=== PATIENT | female | born 1930 | race Caucasian/White ===

== ENCOUNTER → 2017-06-29 | Outpatient (CLI) | payer OTHER ==
[~2017-06-29] MED LIST: ACET-1256 PO; ASPI-320 PO; CALC500C3 PO; CLB200 PO; DORZ2SOL20 OPB; LISI5TAB3 PO; SNK PO; VITAMIN D PO; VTMB12 PO
--- NOTE | 2017-06-29 21:33 | DIAGNOSTIC IMAGING REPORT ---
BONE SCAN 3 PHASE LIMITED CLINICAL HISTORY: 87 years-old Female presenting with HX LEFT HIP REPLACEMENT, R/O LOOSENING. TECHNIQUE: Following the IV administration of 27.0 mCi of technetium 99m MDP, three-phase bone scan of the pelvis was performed. Anterior flow images as well as anterior and posterior blood pool phase images were acquired. Bone phase imaging of pelvis was performed at three hours in multiple obliquities. COMPARISON: Pelvic radiographs from 04/26/2015. FINDINGS: On initial flow imaging, symmetric radiotracer distribution within the vasculature, however, hyperemia noted surrounding the left hip joint best seen on posterior early arterial images. On subsequent blood pool phase imaging, photopenia at the left hip evidence of the left hip prosthesis. Minimal asymmetric hyperemia may be present on posterior view. On bone phase imaging, expected excretion of radiotracer in the urinary bladder. Apart from photopenia related to the left hip prosthesis, symmetric radiotracer distribution. IMPRESSION: Subtle hyperemia surrounding the left hip joint only on the early arterial images and blood pool may be expected chronic postsurgical findings. No hyperemia on delayed phase to raise concern for infection or loosening. Electronically signed by: Zhen Seo M.D. 06/29/2017 9:32 PM Dictated Date/Time: 06/29/2017 9:18 PM
== END | disposition home or self-care (01) ==
LOC: C.NUCL 15:49
DX: T84.032A Mechanical loosening of internal right knee prosthetic joint, initial encounter (principal); Y79.8 Miscellaneous orthopedic devices associated with adverse incidents, not elsewhere classified; M25.562 Pain in left knee

== ENCOUNTER → 2017-07-01 | Outpatient (CLI) | payer OTHER ==
[~2017-07-01] MED LIST changes: +ATOR-22 PO; +CALC500C70 PO; +CYAN500T PO; +LISI-729 PO; +PRED20TA PO
--- NOTE | 2017-07-01 14:01 | DIAGNOSTIC IMAGING REPORT ---
[facility] CASTRO SHLDR,HIP,KNEE CLINICAL HISTORY: 87 years-old Female presenting with LEFT HIP ASPIRATION. COMPARISON: 04/26/2015. PROCEDURE: The risks, benefits, and alternatives to the procedure were discussed with the patient. Written informed consent was obtained. The patient was placed supine on the fluoroscopy table, and a left hip aspiration was performed under fluoroscopic guidance. The area was prepped and draped in the usual sterile fashion. The skin and soft tissues anesthetized with local 1% lidocaine. The left hip joint was accessed utilizing a 20-gauge needle. Attempt at aspiration was performed, which yielded no fluid return. Subsequently, 2 mL of sterile saline was injected into the joint and aspiration reattempted. Again, this yielded no fluid. The procedure was well tolerated without immediate complication. Fluoroscopy dosage (mGy): Not available. Fluoroscopy time: 0.3 minutes. Number of fluoroscopic spot images: 0. Fluoroscopic image(s) recorded: 1. IMPRESSION: Successful aspiration of the left hip under fluoroscopic guidance though no fluid was returned. No specimens collected for analysis. Electronically signed by: Zhen Seo M.D. 07/01/2017 2:00 PM Dictated Date/Time: 07/01/2017 1:57 PM
== END | disposition home or self-care (01) ==
LOC: C.RAD 12:53
DX: T84.038A Mechanical loosening of other internal prosthetic joint, initial encounter (principal); X58.XXXA Exposure to other specified factors, initial encounter

== ENCOUNTER → 2017-07-29 | Outpatient (CLI) | payer OTHER ==
[~2017-07-29] MED LIST changes: -ACET-1256 PO; +ACET-24 PO; +CEFT1INJ57 IV; -CLB200 PO; +CLC100 PO; -LISI-729 PO; -LISI5TAB3 PO; +LSN10 PO; -PRED20TA PO; -SNK PO; +ULT50X PO; -VITAMIN D PO; -VTMB12 PO
[2017-07-29 12:33] LABS: HEMATOCRIT 30.6 % (37-47); HEMOGLOBIN 9.9 g/dL (12.0-16.0); MEAN CELL VOLUME 95.6 fL (80-100); MEAN CORPUSCULAR HEMOGLOBIN 30.9 pg (25-34); MEAN CORPUSCULAR HGB CONC 32.4 g/dl (32-36); MEAN PLATELET VOLUME 9.3 fL (7.4-10.4); PLATELET COUNT 452 K/uL (130-400); RED CELL DISTRIBUTION WIDTH CV 13.6 % (11.5-14.5); RED CELL DISTRIBUTION WIDTH SD 48.2 fL (36.4-46.3); WHITE BLOOD COUNT 9.71 K/uL (4.8-10.8)
[2017-07-29 13:25] LABS: ALBUMIN 2.8 gm/dl (3.4-5.0); ALKALINE PHOSPHATASE 59 U/L (45-117); ALT/SGPT 11 U/L (12-78); AST/SGOT 15 U/L (15-37); BLOOD UREA NITROGEN 14 mg/dl (7-18); CALCIUM 8.5 mg/dl (8.5-10.1); CARBON DIOXIDE 26 mmol/L (21-32); CREATININE 0.59 mg/dl (0.60-1.20); GLUCOSE 71 mg/dl (70-99); POTASSIUM 3.8 mmol/L (3.5-5.1); SODIUM 134 mmol/L (136-145); TOTAL PROTEIN 7.1 gm/dl (6.4-8.2)
--- NOTE | 2017-10-09 06:49 | CODING QUERY NO DIAGNOSIS ---
Valid Physician Order Needed A valid physician order must be submitted in order to properly bill for the service(s) provided, including date of service(s), valid diagnosis, and physician signature. If these tests are done on a recurring basis the original physician order must be submitted in order to code and bill for the service(s) provided. Please fax us the original, signed physician order so that we may expedite billing to [phone] DOS 07/29/2017 * CBC W/O DIFF * SED RATE AUTOMATED * CPK * CMP Thank you Moi [facility] Information Management
== END | disposition home or self-care (01) ==
LOC: C.LABSPEC 11:53
PROVIDERS: ATTEND Family Medicine
DX: Z01.89 Encounter for other specified special examinations (principal)

== ENCOUNTER → 2017-08-12 | Outpatient (CLI) | payer OTHER ==
[2017-08-12 11:52] LABS: BASO % 0.4 %; BASO ABS # 0.03 K/uL (0-0.2); EOS % 3.3 %; EOS ABS # 0.22 K/uL (0-0.5); HEMATOCRIT 31.1 % (37-47); HEMOGLOBIN 9.9 g/dL (12.0-16.0); IG# 0.02 K/uL (0.00-0.02); LYMPH % 30.9 %; LYMPH ABS # 2.08 K/uL (1.2-3.4); MEAN CELL VOLUME 96.6 fL (80-100); MEAN CORPUSCULAR HEMOGLOBIN 30.7 pg (25-34); MEAN CORPUSCULAR HGB CONC 31.8 g/dl (32-36); MEAN PLATELET VOLUME 10.2 fL (7.4-10.4); MONO % 12.6 %; MONO ABS # 0.85 K/uL (0.11-0.59); NEUT % 52.5 %; NEUT ABS # 3.54 K/uL (1.4-6.5); PLATELET COUNT 387 K/uL (130-400); RED CELL DISTRIBUTION WIDTH CV 13.2 % (11.5-14.5); WHITE BLOOD COUNT 6.74 K/uL (4.8-10.8)
[2017-08-12 12:08] LABS: ALBUMIN 2.8 gm/dl (3.4-5.0); ALKALINE PHOSPHATASE 58 U/L (45-117); ALT/SGPT 10 U/L (12-78); AST/SGOT 17 U/L (15-37); BLOOD UREA NITROGEN 11 mg/dl (7-18); CALCIUM 8.5 mg/dl (8.5-10.1); CARBON DIOXIDE 26 mmol/L (21-32); CREATININE 0.49 mg/dl (0.60-1.20); GLUCOSE 77 mg/dl (70-99); SODIUM 137 mmol/L (136-145); TOTAL PROTEIN 6.7 gm/dl (6.4-8.2)
--- NOTE | 2017-08-14 12:25 | CODING QUERY NO DIAGNOSIS ---
1931 Valid Physician Order Needed A valid physician order must be submitted in order to properly bill for the service(s) provided, including date of service(s), valid diagnosis, and physician signature. If these tests are done on a recurring basis the original physican order must be submitted in order to code and bill for the service(s) provided. Please fax us the original, signed physician order so that we may expedite billing to [phone] DOS 08/12/17 CBC WITH DIFF CMP CREATINE PHOSPHOKINASE ESR Thank you COREY Renee, [facility] Health Information Management
== END | disposition home or self-care (01) ==
LOC: C.LABSPEC 11:35
PROVIDERS: ATTEND Internal Medicine Infectious Disease
DX: Z01.89 Encounter for other specified special examinations (principal)

== ENCOUNTER 2018-08-25 18:45 | Inpatient (IN) ==
[2018-08-25] MEDS ORDERED: ONDANSETRON INJ 2 MG/ML 2 ML VIAL IV STA ×2 (20:02→21:18)
[2018-08-25] MEDS ORDERED: HYDROmorphone INJ 0.5 MG/0.5 ML SYR IV PRN (20:02)
[2018-08-25] MEDS ORDERED: SODIUM CHLORIDE 0.9% 500 ML IV SCH (20:15)
[2018-08-25 20:28] LABS: Basophils # (auto) 0.01 K/uL (0-0.2); Basophils % (auto) 0.1 %; Eosinophils # (auto) 0.02 K/uL (0-0.5); Eosinophils % (auto) 0.2 %; Hematocrit (blood only) 33.1 % (37-47); Hemoglobin 11.3 g/dL (12.0-16.0); Immature Granulocytes # (auto) 0.02 K/uL (0.00-0.02); Immature Granulocytes % (auto) 0.2 %; Lymphocytes # (auto) 1.77 K/uL (1.2-3.4); Lymphocytes % (auto) 14.8 %; Mean Corpuscular Hgb Conc 34.1 g/dL (32-36); Mean Corpuscular Volume 95.9 fL (80-100); Mean Platelet Volume 9.6 fL (7.4-10.4); Monocytes # (auto) 1.08 K/uL (0.11-0.59); Neutrophils # (auto) 9.08 K/uL (1.4-6.5); Neutrophils % (auto) 75.7 %; Platelet Count 295 K/uL (130-400); RDW Standard Deviation 45.3 fL (36.4-46.3); Red Blood Count 3.45 M/uL (4.2-5.4); White Blood Count 11.98 K/uL (4.8-10.8)
[2018-08-25 20:31] LABS: Appearance Urine Clear (Clear); Bacteria Urine Automated Negative (Negative); Bilirubin Urine Negative (Negative); Blood Urine Trace (Negative); Color Urine Yellow; Epithelial Cell Urine Auto >30 /lpf (0-5); Glucose Urine UA Negative (Negative); Ketones Urine Trace (Negative); Leukocyte Esterase Urine 1+ (Negative); Nitrite Urine Negative (Negative); Protein Urine Negative (Negative); Urobilinogen Urine Negative (Negative); pH Urine 7.5 (4.5-7.5)
[2018-08-25 20:49] LABS: Albumin Level 3.9 gm/dl (3.4-5.0); BUN Creatinine Ratio 19.7 (10-20); Calcium 8.7 mg/dl (8.5-10.1); Creatinine Clr Calc Pharmacy 56.5 ml/min; Est GFR (Non-African American) 80.2; Potassium 3.7 mmol/L (3.5-5.1)
[2018-08-25 20:52] LABS: Albumin Globulin Ratio 1.3 (0.9-2); Bilirubin,Total 0.4 mg/dl (0.2-1); Globulin 3.1 gm/dl (2.5-4.0)
[2018-08-25 21:03] LABS: RBC Urine Automated 0-4 /hpf (0-4)
[2018-08-25] MEDS ORDERED: fentaNYL citrate 100 MCG/2 ML VIAL IV STA (21:18)
--- NOTE | 2018-08-25 21:21 | CT Scan Report ---
CT abd pelvis wo con CLINICAL HISTORY: 88 years-old Female presenting with right lower quadrant pain, hernia, non-reducibl e. TECHNIQUE: Multidetector CT of the abdomen and pelvis was performed without the use of intravenous co ntrast. IV contrast: None. One or more dose lowering techniques were used consistent with the princip les of ALARA (as low as reasonably achievable), including automatic exposure control, mA or kV adjust ment to individual patient size, and/or use of iterative reconstruction. COMPARISON: None. CT DOSE (mGy.cm): The estimated cumulative dose is 461.48 mGy.cm. FINDINGS: Clinical Team Manager topogram: Orthopedic hardware. Lung bases: Normal heart size. Coronary artery and aortic valve calcification. No pericardial or pleu ral effusion. Minimal dependent changes likely atelectasis or scarring. Liver: Mildly nodular contour of the liver. Normal density. Parenchymal calcification noted in the in ferior right hepatic lobe. Biliary: No gross biliary ductal dilatation allowing for noncontrast technique. Normal gallbladder. Pancreas: Normal noncontrast appearance. Spleen: Normal noncontrast appearance. Adrenal glands: Normal noncontrast appearance. Kidneys and ureters: Normal noncontrast appearance. No nephrolithiasis. No hydronephrosis. Normal ure ters. Bladder: Distended bladder. Pelvic organs: Normal noncontrast appearance. Bowel: Diverticulosis of the distal descending and proximal sigmoid colon without wall thickening or pericolonic inflammatory change. The mid transverse colon is contained within the right inguinal umair ia. The appendix is normal. No bowel obstruction. Moderate sliding type hiatal hernia. Peritoneal cavity: Trace fluid noted in the right inguinal hernia. No free intraperitoneal fluid or g as. Lymph nodes: No gross lymphadenopathy allowing for noncontrast technique. Vasculature: Atherosclerosis of the normal caliber abdominal aorta. Abdominal wall: Normal. Musculoskeletal: Total left hip arthroplasty. Osteopenia is suspected. Degenerative changes of the sp ine. Anterolisthesis of L4 on L5 degenerative related. IMPRESSION: 1. Right inguinal hernia containing mid transverse colon with trace associated fluid. No resulting b owel obstruction. The lack of colonic wall thickening of the herniated segment argues against strangu lation/ischemia. 2. Colonic diverticulosis. No evidence of diverticulitis. 3. Moderate sliding type hiatal hernia. Electronically signed by: Zhen Seo M.D. 08/25/2018 9:20 PM
--- NOTE | 2018-08-25 21:55 | History & Physical Report ---
Date of Service August 25, 2018 Assessment & Plan (1) Incarcerated right inguinal hernia: Our plan is to proceed with her open right inguinal hernia repair possible bowel resection unlikely mesh risk and complications were explained to her including bleeding infection and she would like to proceed accordingly all questions were answered surgery is been called and we will appropriately proceed the patient was last meal was about 12:00 today Present on Admission?: Yes History of Present Illness Chief Complaint: Pain in the right inguinal area that started this morning she is known to have a lump in the area and was able always to push it back and but this time she was unable to she had one area of emesis prior to coming to the hospital nauseated at this time Primary Care Provider: Flores Gonzalez MD Allergies Allergy/AdvReac Type Severity Reaction Status Date / Time brimonidine AdvReac Mild ITCHING Verified 07/28/18 20:32 Aromatic Oils Allergy Unknown DRY Uncoded 07/28/18 20:32 THROAT,CHOKING,NUMB LIPS Home Medications Home Medications Medication Instructions Recorded Confirmed Type acetaminophen [Tylenol Extra 1,000 mg PO DIRECTED PRN 07/28/18 07/28/18 History Strength] atorvastatin 20 mg PO QAM 07/28/18 07/28/18 History calcium carbonate-vitamin D3 1 tab PO DAILY 07/28/18 07/28/18 History [Calcium 500 + D] cyanocobalamin (vitamin B-12) 500 mcg PO DAILY 07/28/18 07/28/18 History [Vitamin B-12] docusate sodium 100 mg PO DAILY 07/28/18 07/28/18 History lisinopril 10 mg PO QAM 07/28/18 07/28/18 History loteprednol etabonate [Lotemax] 1 drp OPR DAILY 07/28/18 07/28/18 History meclizine 12.5 mg PO TID PRN 07/28/18 07/28/18 History aspirin 81 mg PO DAILY #30 tab 07/30/18 Rx Past Med/Surg History Social History Preferred Language: Slovenian Communication Ability: Effective Beliefs That Will Affect Care: None Current Living Situation: Alone Feels Safe at Home: Yes Smoking Status: Never smoker Hx Alcohol Use: No Hx Substance Use: No Review of Systems Review of Systems: Patient has had overall good health he has had a history of DVTs strokelike symptoms hypertension GERD diverticulosis cataract surgery left hip surgery she also stated that she had colonoscopy approximately 5 years ago at was fine no polyps she denies any changes in bowel habits per her her bowels probably fairly regularly denies any changes in weight any GI symptoms other than what mentioned Physical Exam Physical Exam: Patient is alert coherent hard of hearing uses hearing aids but not available at this time she has significant other family members at her bedside the head is normocephalic the sclera Nonicteric no cervical lymphadenopathy lungs clear heart normal sinus rhythm the abdomen is softly distended tender in the right lower quadrant seems to have an inguinal hernia hard to reduce the size approximately a OrangeExtremities grossly normal Results & Data Vital Signs (Past 12 Hours) Vital Signs Temp Pulse Pulse Resp BP BP Pulse Ox 08/25/18 21:21 80 18 193/91 H 96 08/25/18 20:35 82 18 170/74 H 96 08/25/18 18:48 36.8 C 93 H 18 164/[address] scan was reviewed with findings of transverse colon in the hernia Code Status & VTE Plan VTE Prophylaxis Plan VTE Prophylaxis will be ordered: Yes
--- NOTE | 2018-08-25 22:18 | Anesthesiology Consultation ---
Date of Service August 25, 2018 TIA <1month ago Advanced Age HTN GERD Obesity Assessment & Plan Chart Review Chart Review: Acceptable Risk for Surgery and Patient NOT seen in Pre Admission Testing Consults Requested none ASA [id number] Proposed Anesthesia Anesthesia Type: General Risk / Benefits Reviewed With: PT / POA / Parent / Guardian, Accepts Plan and Informed Consent Obtained History Surgery Operation Date: 08/25/18 22:00 Proposed Procedures p Inguinal Hernia Repair(Right) - Andrea Gustafson MD Height/Weight Height: 5 ft Weight: 76.2 kg Allergies Allergy/AdvReac Type Severity Reaction Status Date / Time brimonidine AdvReac Mild ITCHING Verified 07/28/18 20:32 Aromatic Oils Allergy Unknown DRY Uncoded 07/28/18 20:32 THROAT,CHOKING,NUMB LIPS Medications Home Medications Medication Instructions Recorded Confirmed Last Taken acetaminophen [Tylenol Extra 1,000 mg PO DIRECTED PRN 07/28/18 07/28/18 Unknown Strength] atorvastatin 20 mg PO QAM 07/28/18 07/28/18 07/28/18 calcium carbonate-vitamin D3 1 tab PO DAILY 07/28/18 07/28/18 07/28/18 [Calcium 500 + D] cyanocobalamin (vitamin B-12) 500 mcg PO DAILY 07/28/18 07/28/18 07/28/18 [Vitamin B-12] docusate sodium 100 mg PO DAILY 07/28/18 07/28/18 Unknown lisinopril 10 mg PO QAM 07/28/18 07/28/18 07/28/18 loteprednol etabonate [Lotemax] 1 drp OPR DAILY 07/28/18 07/28/18 Unknown meclizine 12.5 mg PO TID PRN 07/28/18 07/28/18 Unknown aspirin 81 mg PO DAILY #30 tab 07/30/18 Unknown Active Medications Generic Name Dose Route Start Last Admin Trade Name Freq PRN Reason Stop Dose Admin Hydromorphone HCl 0.25 mg 08/25/18 20:02 08/25/18 20:36 Dilaudid IV 09/08/18 20:01 0.25 mg Q15M PRN Administration Pain NPO Date Last Intake of Fluids: 08/25/18 Time Last Intake of Fluids: 17:00 Date Last Intake of Solids: 08/25/18 Time Last Intake of Solids: 12:00 Past Medical History Medical History Incarcerated right inguinal hernia (Acute) Hypertension (Chronic) Glaucoma (Chronic) GERD (gastroesophageal reflux disease) (Chronic) Osteoarthritis (Chronic) Osteoporosis (Chronic) Diverticulosis (Chronic) History of rectal bleeding (Chronic) Cerebrovascular disease (Chronic) "?H/o TIA, no residual deficit MRI 11/2012- microvascular ischemic disease CT 08/2013- ?old lacunar infarct right basal ganglia, small vessel ischemic disease" Infection of prosthesis Neuropathy Exercise / Class Metabolic Activity II 4-5 Yardwork/Stairs/Walk up hill Past Family History Family History Other No significant family history Past Surgical History Surgical History S/P cataract surgery (Chronic) Status post glaucoma surgery (Chronic) History of left hip replacement (Chronic) Past Anesthesia History No Hx of Anesthesia Complications and No Family Hx of Anesthesia Complications History of PONV No Hx of PONV and No Hx of Motion Sickness Social History Smoking Status: Never smoker Hx Alcohol Use: No Hx Substance Use: No substance use type: does not use Review of Systems Gastrointestinal: + nausea and + vomiting (scant bilious material) Neurologic: no problem reported (vertigo up until about 10 days ago (post tia)) Physical Exam Vital Signs Last Vital Signs Temp 36.8 C 08/25/18 18:48 Pulse 80 08/25/18 21:21 Resp 18 08/25/18 21:21 BP 193/91 H 08/25/18 21:21 Pulse Ox 96 08/25/18 21:21 ENMT Mouth: no dentition abnormality Thyromental Distance: > or= 3.5 Finger Breadths Mallampati Class: II Neck normal visual inspection Respiratory normal respiratory effort Auscultation: lungs clear to auscultation bilaterally Cardiovascular Rate/Rhythm: regular rate and regular rhythm Psychiatric Orientation: alert Testing Laboratory Results 08/25/18 20:14 08/25/18 20:14 Urine Color Yellow 08/25/18 20:15 Urine Appearance Clear (Clear) 08/25/18 20:15 Urine pH 7.5 (4.5-7.5) 08/25/18 20:15 Ur Specific [place] 1.020 (1.000-1.030) 08/25/18 20:15 Urine Protein Negative (Negative) 08/25/18 20:15 Urine Glucose (UA) Negative (Negative) 08/25/18 20:15 Urine Ketones Trace (Negative) H 08/25/18 20:15 Urine Nitrite Negative (Negative) 08/25/18 20:15 Ur Leukocyte Esterase 1+ (Negative) H 08/25/18 20:15 Urine WBC (Auto) 5-10 /hpf (0-5) H 08/25/18 20:15 Urine RBC (Auto) 0-4 /hpf (0-4) 08/25/18 20:15 U Hyaline Cast (Auto) 5-10 /lpf (0-5) H 08/25/18 20:15 U Epithel Cells (Auto) >30 /lpf (0-5) H 08/25/18 20:15 Urine Bacteria (Auto) Negative (Negative) 08/25/18 20:15 Electrocardiogram Date: 08/25/18 Findings: + LVH and + pertinent finding (possible lateral infarct) Echocardiogram Date: 07/29/18 EF: 65 LV Function: normal Valvular Disease: + no significant valvular disease (mild MR/TR/HI)
[2018-08-25] MEDS ORDERED: BUPIVACAINE 0.5 % 5 MG/1 ML MPF 30ML VIAL ONE (22:21)
[2018-08-25] MEDS ORDERED: BACITRACIN INJ 50,000 UNIT VIAL ONE (22:22)
[2018-08-25] MEDS ORDERED: SODIUM CHL BACTERIOSTATIC 0.9% INJ 30 ML VIAL ONE (22:22)
[2018-08-25] MEDS ORDERED: fentaNYL citrate 100 MCG/2 ML VIAL ONE ×2 (22:27→22:52)
[2018-08-25] MEDS ORDERED: cefOXitin 1,000 MG/50 ML BAG IV STA (22:56)
[2018-08-25] MEDS ORDERED: LIDOCAINE HCL 2% 2 ML VIAL/AMP(20MG/ML) INFIL ONE (22:57)
[2018-08-25] MEDS ORDERED: GLYCOPYRROLATE 0.2 MG/ML VIAL ONE (22:57)
[2018-08-25] MEDS ORDERED: NEOSTIGMINE METHYLSULFATE 5 MG/5 ML SYR ONE (22:57)
[2018-08-25] MEDS ORDERED: SUCCINYLCHOLINE CHLORIDE 20 MG/ML 10 ML VIAL ONE (22:57)
[2018-08-25] MEDS ORDERED: ONDANSETRON INJ 2 MG/ML 2 ML VIAL ONE (22:57)
[2018-08-25] MEDS ORDERED: ROCURONIUM BROMIDE 10 MG/ML 5 ML VIAL ONE (22:57)
[2018-08-25] MEDS ORDERED: PROPOFOL IV EMULSION 10 MG/ML 20 ML VIAL IV ONE (22:57)
--- NOTE | 2018-08-25 23:13 | Post Operative Brief Note ---
Immediate Post Op Note v1 Date of Surgery August 25, 2018 Pre & Post Diagnosis Operation Date: 08/25/18 22:00 Pre-Op Diagnosis: Abdominal Pain Post-Op Diagnosis: Abdominal Pain Procedure Operation Date: 08/25/18 22:00 Actual Procedures p Incarcerated Right Direct Hernia Repair(Right) - Andrea Gustafson MD Surgeon Andrea Gustafson MD Television Audio Engineer o Estimated Blood Loss 10 Findings Consistent with Post-Op Diagnosis
--- NOTE | 2018-08-25 23:21 | Emergency Department Note ---
Entered by Twila Zamora acting as a scribe for ED Provider Note CHIEF COMPLAINT: Pelvic pain HISTORY OF PRESENT ILLNESS: The patient is an 88 year old female who presents to the Emergency Room with complaints of an episode of pelvic pain beginning 10 hours ago. The patient describes the pain as a 9/10 and very sharp. The patient states that she has been urinating rather infrequently. The patient notes that this pain may be from her hernia. The patient denies recent surgery. No relieving factors noted. Pt denies LOC, headache, fevers, chills, diaphoresis, visual changes, neck pain, chest pain, breathing difficulties, nausea, vomiting, back pain, melena, hematochezia, numbness, weakness, lymphadenopathy, rash, or other complaints. REVIEW OF SYSTEMS: See HPI for pertinent positives and negatives. A total of ten systems were reviewed and were otherwise negative. PMHx/PSHx: DVT, dyslipidemia, HTN, GERD, diverticulitis, and glaucoma. SOCIAL HISTORY: Patient lives at home. PHYSICAL EXAM: GENERAL: Awake, alert, uncomfortable-appearing, in no distress HENT: Normocephalic, atraumatic. Oropharynx unremarkable. EYES: PERRL. Normal conjunctiva. Sclera non-icteric. NECK: Inspection normal. Non-tender. Supple. No nuchal rigidity. FROM. No masses. RESPIRATORY: Clear to auscultation. No wheezes. No rales. Normal respiratory effort. CARDIAC: Borderline tachycardic. Normal rhythm. No murmurs. No rubs. Extremities warm and well perfused. Pulses equal. No JVD. GI: RLQ tenderness. Non-reducible right inguinal hernia. Soft, non-distended. No rebound or guarding. No masses. RECTAL: Deferred. MUSCULOSKELETAL: Atraumatic. Chest examination reveals no tenderness. The back is symmetrical on inspection without obvious abnormality. There is no CVA tenderness to palpation. No joint edema. LOWER EXTREMITIES: Calves are equal size bilaterally and non-tender. No edema. No discoloration. NEURO: Normal sensorium. No sensory or motor deficits noted. SKIN: No rash or jaundice noted. EMERGENCY DEPARTMENT COURSE: 2001: Past medical records reviewed. The patient was evaluated in room A2, and a complete history and physical examination were performed. 2123: I discussed the patient's case with Dr. Ramondelli- Surgeon. He believes the patient needs to go in for emergency surgery. MEDICAL DECISION MAKING: Triage Nursing notes reviewed and agree them. Additional history obtained from family. The patient's history was concerning for abdominal pain. Differential diagnosis: Etiologies such as incarcerated hernia, appendicitis, diverticulitis, PUD, biliary pathology, UTI, pancreatitis, obstruction, mesenteric ischemia, aortic pathology, infections, inflammatory bowel disease, renal colic, as well as others were entertained. Physical examination findings: As above. Concerning for incarcerated right inguinal hernia peer ER treatment provided: Cardiac monitoring IV Zofran Normal saline hydration IV Dilaudid On reassessment the patient was nauseated. IV Zofran IV fentanyl N.p.o. On reassessment the patient felt better. Diagnostics interpreted by me: The labs revealed mild hyponatremia. CBC showed a slight leukocytosis. Urinalysis unremarkable. Imaging studies: CT scan abdomen pelvis performed and revealed a large right inguinal hernia. No sign of perforation or obstruction. Consultation: A consultation was placed with the general surgeon on-call, Dr. Andrea Gustafson. The case was discussed and diagnostics were reviewed. The patient was evaluated in the ER for further treatment. The patient will be taken emergently to the operating room for an incarcerated right inguinal hernia. IMPRESSION: Incarcerated right inguinal hernia PLAN: Still a patient The scribe's documentation has been prepared under my direction and personally reviewed by me in its entirety. I confirm that the note above accurately reflects all work, treatment, procedures, and medical decision making performed by me. Impression & Plan Incarcerated right inguinal hernia Past Med/Surg History Medical History Incarcerated right inguinal hernia (Acute) Hypertension (Chronic) Glaucoma (Chronic) GERD (gastroesophageal reflux disease) (Chronic) Osteoarthritis (Chronic) Osteoporosis (Chronic) Diverticulosis (Chronic) History of rectal bleeding (Chronic) Cerebrovascular disease (Chronic) "?H/o TIA, no residual deficit MRI 11/2012- microvascular ischemic disease CT 08/2013- ?old lacunar infarct right basal ganglia, small vessel ischemic disease" Infection of prosthesis Neuropathy Surgical History S/P cataract surgery (Chronic) Status post glaucoma surgery (Chronic) History of left hip replacement (Chronic) Family History Other No significant family history Social History Preferred Language: Indonesian Communication Ability: Effective Beliefs That Will Affect Care: None Current Living Situation: Alone Feels Safe at Home: Yes Smoking Status: Never smoker Hx Alcohol Use: No Hx Substance Use: No Results & Data Vital Signs Vital Signs - 24 hr 08/25/18 18:48 08/25/18 20:35 08/25/18 21:21 Temperature 36.8 C Temperature Source Oral Sepsis Recent Fever Within 48 Hours No Sepsis Action Taken by Nursing No Action Required Pulse Rate 93 H Pulse Rate [Finger] 82 80 Pulse Rhythm [Finger] Regular Regular Pulse Strength [Finger] Normal Normal Respiratory Rate 18 18 18 Respiratory Effort / Characteristics Non-Labored Non-Labored Spontaneous Non-Labored Spontaneous Respiratory Depth Normal Normal Normal Respiratory Pattern Regular Regular Blood Pressure 164/86 H Blood Pressure [Left Arm] 170/74 H 193/91 H Blood Pressure Mean 112 Blood Pressure Mean [Left Arm] 106 125 Blood Pressure Position [Left Arm] Lying Lying Pulse Oximetry 97 96 96 Oxygen Delivery Method Room Air Room Air Room Air Home Medications Current Medication List: was personally reviewed by me Laboratory Data Attestation: I reviewed the patient's lab results. Result diagrams: 08/25/18 20:14 08/25/18 20:14 Lab Results 08/25/18 08/25/18 08/25/18 Range/Units 20:14 20:14 20:15 WBC 11.98 H (4.8-10.8) K/uL RBC 3.45 L (4.2-5.4) M/uL Hgb 11.3 L (12.0-16.0) g/dL Hct 33.1 L (37-47) % MCV 95.9 (80-100) fL MCH 32.8 (25-34) pg MCHC 34.1 (32-36) g/dL RDW Std Deviation 45.3 (36.4-46.3) fL RDW Coeff of Chandrika 13.0 (11.5-14.5) % Plt Count 295 (130-400) K/uL MPV 9.6 (7.4-10.4) fL Immature Gran % (Auto) 0.2 % Neut % (Auto) 75.7 % Lymph % (Auto) 14.8 % [place] % (Auto) 9.0 % Eos % (Auto) 0.2 % Baso % (Auto) 0.1 % Immature Gran # (Auto) 0.02 (0.00-0.02) K/uL Neut # (Auto) 9.08 H (1.4-6.5) K/uL Lymph # (Auto) 1.77 (1.2-3.4) K/uL [place] # (Auto) 1.08 H (0.11-0.59) K/uL Eos # (Auto) 0.02 (0-0.5) K/uL Baso # (Auto) 0.01 (0-0.2) K/uL Sodium 129 L (136-145) mmol/L Potassium 3.7 (3.5-5.1) mmol/L Chloride 96 L (98-107) mmol/L Carbon Dioxide 26 (21-32) mmol/L Anion Gap 7.0 (3-11) BUN 12 (7-18) mg/dl Creatinine 0.64 (0.6-1.2) mg/dl Est Cr Clr Drug Dosing 56.5 ml/min Est GFR ( Amer) 93.0 Est GFR (Non-Af Amer) 80.2 BUN/Creatinine Ratio 19.7 (10-20) Glucose 92 (70-99) mg/dl Calcium 8.7 (8.5-10.1) mg/dl Total Bilirubin 0.4 (0.2-1) mg/dl AST 17 (15-37) U/L ALT 15 (12-78) U/L Alkaline Phosphatase 52 (45-117) U/L Total Protein 7.0 (6.4-8.2) gm/dl Albumin 3.9 (3.4-5.0) gm/dl Globulin 3.1 (2.5-4.0) gm/dl Albumin/Globulin Ratio 1.3 (0.9-2) Lipase 115 (73-393) U/L Urine Color Yellow Urine Appearance Clear (Clear) Urine pH 7.5 (4.5-7.5) Ur Specific [place] 1.020 (1.000-1.030) Urine Protein Negative (Negative) Urine Glucose (UA) Negative (Negative) Urine Ketones Trace H (Negative) Urine Blood Trace H (Negative) Urine Nitrite Negative (Negative) Urine Bilirubin Negative (Negative) Urine Urobilinogen Negative (Negative) Ur Leukocyte Esterase 1+ H (Negative) Urine WBC (Auto) 5-10 H (0-5) /hpf Urine RBC (Auto) 0-4 (0-4) /hpf U Hyaline Cast (Auto) 5-10 H (0-5) /lpf U Epithel Cells (Auto) >30 H (0-5) /lpf Urine Bacteria (Auto) Negative (Negative) Administered Medications Hydromorphone HCl (Dilaudid) 0.25 mg IV Q15M PRN PRN Reason: Pain Stop: 09/08/18 20:01 Last Admin: 08/25/18 20:36 Dose: 0.25 mg Documented by: [id number] Cefoxitin Sodium (Mefoxin) 1,000 mg in 50 mls @ 100 mls/hr IV NOW STA Stop: 08/25/18 23:25 Last Admin: 08/25/18 22:46 Dose: 100 mls/hr Documented by: [id number] Discontinued Medications Bacitracin (Bacitracin) Confirm Administered Dose 50,000 units .ROUTE .STK-MED ONE Stop: 08/25/18 22:23 Last Admin: 08/25/18 23:13 Dose: Not Given Documented by: [id number] Bupivacaine HCl (Marcaine 0.5% Mpf) Confirm Administered Dose 30 ml .ROUTE .STK- MED ONE Stop: 08/25/18 22:22 Last Admin: 08/25/18 23:13 Dose: 8 ml Documented by: [id number] Fentanyl Citrate (Fentanyl Citrate) 50 mcg IV NOW STA Stop: 08/25/18 21:19 Last Admin: 08/25/18 21:25 Dose: 50 mcg Documented by: [id number] Sodium Chloride (Nss) 500 mls @ 999 mls/hr IV .Q31M TORO Stop: 08/25/18 20:45 Last Infusion: 08/25/18 21:07 Dose: 0 mls/hr Documented by: [id number] Admin: 08/25/18 20:36 Dose: 999 mls/hr Documented by: [id number] Ondansetron HCl (Zofran) 4 mg IV NOW STA Stop: 08/25/18 20:03 Last Admin: 07/10/19 20:36 Dose: 4 mg Documented by: [id number] Ondansetron HCl (Zofran) 4 mg IV NOW STA Stop: 08/25/18 21:19 Last Admin: 08/25/18 21:25 Dose: 4 mg Documented by: [id number] Imaging Data Radiologist's Impression: Radiology results as stated below per my review and the radiologist's interpretation: CT abd pelvis wo con CLINICAL HISTORY: 88 years-old Female presenting with right lower quadrant pain, hernia, non-reducible. TECHNIQUE: Multidetector CT of the abdomen and pelvis was performed without the use of intravenous contrast. IV contrast: None. One or more dose lowering techniques were used consistent with the principles of ALARA (as low as reasonably achievable), including automatic exposure control, mA or kV adjustment to individual patient size, and/or use of iterative reconstruction. COMPARISON: None. CT DOSE (mGy.cm): The estimated cumulative dose is 461.48 mGy.cm. FINDINGS: Insole Bottom Filler topogram: Orthopedic hardware. Lung bases: Normal heart size. Coronary artery and aortic valve calcification. No pericardial or pleural effusion. Minimal dependent changes likely atelectasis or scarring. Liver: Mildly nodular contour of the liver. Normal density. Parenchymal calcification noted in the inferior right hepatic lobe. Biliary: No gross biliary ductal dilatation allowing for noncontrast technique. Normal gallbladder. Pancreas: Normal noncontrast appearance. Spleen: Normal noncontrast appearance. Adrenal glands: Normal noncontrast appearance. Kidneys and ureters: Normal noncontrast appearance. No nephrolithiasis. No hydronephrosis. Normal ureters. Bladder: Distended bladder. Pelvic organs: Normal noncontrast appearance. Bowel: Diverticulosis of the distal descending and proximal sigmoid colon without wall thickening or pericolonic inflammatory change. The mid transverse colon is contained within the right inguinal hernia. The appendix is normal. No bowel obstruction. Moderate sliding type hiatal hernia. Peritoneal cavity: Trace fluid noted in the right inguinal hernia. No free intraperitoneal fluid or gas. Lymph nodes: No gross lymphadenopathy allowing for noncontrast technique. Vasculature: Atherosclerosis of the normal caliber abdominal aorta. Abdominal wall: Normal. Musculoskeletal: Total left hip arthroplasty. Osteopenia is suspected. Degenerative changes of the spine. Anterolisthesis of L4 on L5 degenerative related. IMPRESSION: 1. Right inguinal hernia containing mid transverse colon with trace associated fluid. No resulting bowel obstruction. The lack of colonic wall thickening of the herniated segment argues against strangulation/ischemia. 2. Colonic diverticulosis. No evidence of diverticulitis. 3. Moderate sliding type hiatal hernia. Electronically signed by: Zhen Seo M.D. 08/25/2018 9:20 PM Blood Pressure Blood Pressure Findings: Elevated blood pressure Blood Pressure Disposition: further management by hospitalist Discharge Plan Visit Data Chief Complaint: Pelvic Pain Stated Complaint: VAGINAL PAIN ED Provider: De Arreguin Discharge Problem: Incarcerated right inguinal hernia Patient Disposition: Still a Patient Discharge Instructions Interventions: ED Discharge Assessment Last Done: 08/25/18 21:47 The scribe's documentation has been prepared under my direction and personally reviewed by me in its entirety. I confirm that the note above accurately reflects all work, treatment, procedures, and medical decision making performed by me.
[2018-08-25] MEDS ORDERED: ATROPINE SULFATE 0.1 MG/ML 10ML SYR IV PRN (23:28)
[2018-08-25] MEDS ORDERED: fentaNYL citrate 100 MCG/2 ML VIAL IV PRN (23:28)
[2018-08-25] MEDS ORDERED: ePHEDrine sulfate 50 MG/ML AMP IV PRN (23:28)
[2018-08-25] MEDS ORDERED: ONDANSETRON INJ 2 MG/ML 2 ML VIAL IV PRN (23:28)
--- NOTE | 2018-08-25 23:40 | Operative Report ---
Post Operative Report Pre & Post Diagnosis Operation Date: 08/25/18 22:00 Pre-Op Diagnosis: Abdominal Pain Post-Op Diagnosis: Abdominal Pain Procedure Operation Date: 08/25/18 22:00 Actual Procedures p Incarcerated Right Direct Hernia Repair(Right) - Andrea Gustafson MD The patient was brought into the operating theater supine position general endotracheal anesthesia right lower quadrant was prepped Betadine solution properly draped a timeout was had systemic antibiotics given patient identified 1% Xylocaine with epi was used to infiltrate 2 fingerbreadths medial to the anterior superior iliac crest incision 3 inches long was made parallel the lingual ligament deepened to subcutaneous tissue dissected laterally to the external fascia a finger inserted on top of the fascia and freed up to subcutaneous tissue beyond the external ring where we can see identified tissue incarcerated at the external ring there was no fluid or bloody drainage incision was made in the external fascia dissected cut around to the external ring we once freed this the contents easily reduced into the abdomen were able then to elevate the round ligament and divided ligated the patient had a direct hernia that incarcerated to the external ring but by CAT scan had part of the transverse colon this was reduced easily in the abdomen there was no evidence of any vascular compromise the direct hernia contents were these were returned in the abdomen I used 3-0 silk interrupted to close the transversalis fascia all the way beyond the internal ring and then will reinforce the whole area with interrupted 2-0 silk in a Bassini fashion the area was checked hemostasis appear satisfactory local was used around the area external fascia was closed with 2-0 Vicryl as was subcutaneous tissue gia for skin edges dressing applied procedure tolerated well estimated blood loss 10 cc Surgeon Andrea Gustafson MD Build Engineer o Estimated Blood Loss 10 Findings Consistent with Post-Op Diagnosis Specimens round ligament Description of Procedure merda I attest to the content of the Intraoperative Record and any orders documented therein. Any exceptions are noted below.
--- NOTE | 2018-08-25 23:46 | Anesthesiology Progress Note ---
Date of Service August 25, 2018 Anesthesia Post Procedure Vital Signs Vital Signs: Temp Pulse Pulse Pulse Resp BP BP 08/25/18 23:35 70 16 08/25/18 23:25 36.4 C L 74 74 20 08/25/18 21:21 80 18 193/91 H 08/25/18 20:35 82 18 170/74 H 08/25/18 18:48 36.8 C 93 H 18 164/86 H BP Pulse Ox 08/25/18 23:35 171/88 H 99 08/25/18 23:25 165/77 H 100 08/25/18 21:21 96 08/25/18 20:35 96 08/25/18 18:48 97 Pain Intensity Pelvic: Pain Intensity: 9 Transfer of Care Handoff Completed per policy Notes Mental Status: alert / awake / arousable Patient Amnestic to Procedure: Yes Nausea / Vomiting: adequately controlled Pain: adequately controlled Airway Patency, RR, SpO2: stable & adequate BP & HR: stable & adequate Hydration State: stable & adequate Anesthetic Complications: no major complications apparent
[2018-08-26] MEDS ORDERED: HYDROmorphone INJ 0.5 MG/0.5 ML SYR IV PRN (00:42)
[2018-08-26] MEDS ORDERED: ACETAMINOPHEN 500 MG TAB PO PRN (00:42)
[2018-08-26] MEDS ORDERED: LACTATED RINGER'S 1,000 ML IV SCH (01:00)
[2018-08-26] MEDS: ONDANSETRON INJ 2 MG/ML 2 ML VIAL IV PRN ×2 (01:18→07:36)
--- NOTE | 2018-08-26 06:24 | Surgery Progress Note ---
Date of Service August 26, 2018 post op open right inc ing hernia repair without mesh Assessment & Plan (1) Incarcerated right inguinal hernia: post op 6 hours op finding discussed with pt change iv fluids go to oral analgesics ambulate Our plan is to proceed with her open right inguinal hernia repair possible bowel resection unlikely mesh risk and complications were explained to her including bleeding infection and she would like to proceed accordingly all questions were answered surgery is been called and we will appropriately proceed the patient was last meal was about 12:00 today Subjective nauseated Review of Systems Review of Systems: nausea Physical Exam Physical Exam: alert coherent in no distress abd soft no tenderness dressing dry Results & Data Vital Signs (Past 12 Hours) Vital Signs Temp Pulse Pulse Pulse Pulse Resp BP 08/26/18 03:42 36.3 C L 78 16 08/26/18 02:30 36.3 C L 75 14 08/26/18 01:30 36.3 C L 70 14 08/26/18 01:06 36.4 C L 68 14 08/26/18 00:45 36.5 C 70 14 08/26/18 00:05 36.4 C L 62 16 08/25/18 23:55 36.4 C L 63 16 08/25/18 23:45 36.4 C L 68 16 08/25/18 23:35 70 16 08/25/18 23:25 36.4 C L 74 74 20 08/25/18 21:21 80 18 08/25/18 20:35 82 18 08/25/18 18:48 36.8 C 93 H 18 164/86 H BP BP Pulse Ox 08/26/18 03:42 162/81 H 96 08/26/18 02:30 149/80 H 92 08/26/18 01:30 157/80 H 95 08/26/18 01:06 168/77 H 91 08/26/18 00:45 178/76 H 96 08/26/18 00:05 176/75 H 94 08/25/18 23:55 177/82 H 95 08/25/18 23:45 177/78 H 97 08/25/18 23:35 171/88 H 99 08/25/18 23:25 165/77 H 100 08/25/18 21:21 193/91 H 96 08/25/18 20:35 170/74 H 96 08/25/18 18:48 97 lab noted
[2018-08-26] MEDS: SODIUM CHLORIDE 0.9% 1000ML 1,000 ML IV SCH ×2 (06:40→23:28)
[2018-08-26] MEDS: CYANOCOBALAMIN 500 MCG TABLET (VITAMIN B-12) PO SCH (08:37)
[2018-08-26] MEDS: ATORVASTATIN 20 MG TAB PO SCH ×2 (08:37→14:02)
[2018-08-26] MEDS: ASPIRIN 81 MG CHEW PO SCH ×2 (08:37→14:01)
[2018-08-26] MEDS: LISINOPRIL 10 MG TAB PO SCH ×2 (08:37→14:02)
--- NOTE | 2018-08-26 08:45 | Anesthesiology Progress Note ---
Date of Service August 26, 2018 Anesthesia Post Procedure Vital Signs Vital Signs: Temp Pulse Pulse Pulse Pulse Resp BP 08/26/18 07:37 36.5 C 75 16 08/26/18 03:42 36.3 C L 78 16 08/26/18 02:30 36.3 C L 75 14 08/26/18 01:30 36.3 C L 70 14 08/26/18 01:06 36.4 C L 68 14 08/26/18 00:45 36.5 C 70 14 08/26/18 00:05 36.4 C L 62 16 08/25/18 23:55 36.4 C L 63 16 08/25/18 23:45 36.4 C L 68 16 08/25/18 23:35 70 16 08/25/18 23:25 36.4 C L 74 74 20 08/25/18 21:21 80 18 08/25/18 20:35 82 18 08/25/18 18:48 36.8 C 93 H 18 164/86 H BP BP Pulse Ox 08/26/18 07:37 159/73 H 96 08/26/18 03:42 162/81 H 96 08/26/18 02:30 149/80 H 92 08/26/18 01:30 157/80 H 95 08/26/18 01:06 168/77 H 91 08/26/18 00:45 178/76 H 96 08/26/18 00:05 176/75 H 94 08/25/18 23:55 177/82 H 95 08/25/18 23:45 177/78 H 97 08/25/18 23:35 171/88 H 99 08/25/18 23:25 165/77 H 100 08/25/18 21:21 193/91 H 96 08/25/18 20:35 170/74 H 96 08/25/18 18:48 97 Notes Mental Status: alert / awake / arousable and participated in evaluation Nausea / Vomiting: adequately controlled Pain: adequately controlled Airway Patency, RR, SpO2: stable & adequate BP & HR: stable & adequate Hydration State: stable & adequate Anesthetic Complications: no major complications apparent Notes: Patient has upper lip swelling that is uniform across the upper lip and limited to the upper lip. There is no apparent injury to the oral mucosa under the lip. The patient states " it may have been a reaction to the plastic mask". The swelling was evident in the post-anesthesia recovery period. Anesthesia will follow up with the patient to reassess.
[2018-08-26] MEDS ORDERED: ASPIRIN CHEW 324 MG PO SCH (09:00)
[2018-08-26] MEDS ORDERED: PROMETHAZINE HCL 12.5 MG in SODIUM CHLORIDE 0.9% 50 ML IV PRN (09:22)
[2018-08-26] MEDS ORDERED: COUGH DROP (SUGAR FREE) LOZ 24 LOZ/1 BOX BUCCAL PRN (14:03)
[2018-08-26] MEDS: ACETAMINOPHEN 325 MG TAB PO PRN (20:51)
[2018-08-27] MEDS: ACETAMINOPHEN 325 MG TAB PO PRN (08:00)
[2018-08-27] MEDS: ASPIRIN 81 MG CHEW PO SCH (08:01)
[2018-08-27] MEDS: CYANOCOBALAMIN 500 MCG TABLET (VITAMIN B-12) PO SCH (08:02)
[2018-08-27] MEDS: ATORVASTATIN 20 MG TAB PO SCH (08:02)
[2018-08-27] MEDS: LISINOPRIL 10 MG TAB PO SCH (08:02)
--- NOTE | 2018-08-27 08:17 | Surgery Progress Note ---
Date of Service August 27, 2018 Assessment & Plan (1) Incarcerated right inguinal hernia: POD 1 1/2 right inguinal hernia repair home today if tolerates diet Subjective minimal pain, not much appetite last night but ready for breakfast, hopes to go home Physical Exam Gastrointestinal (Abdomen): Inspection/Auscultation: + abdominal surgical incision (clean, dry, minimal ecchymosis); abdomen not distended Percussion/Palpation: abdomen soft Results & Data Vital Signs (Past 12 Hours) Vital Signs Temp Pulse Pulse Resp BP BP Pulse Ox 08/27/18 07:47 36.9 C 76 16 168/80 H 95 08/26/18 22:59 37.1 C 75 14 151/70 H 96
--- NOTE | 2018-08-31 09:24 | Discharge Summary ---
Date of Service August 31, 2018 Principal Diagnosis Incarcerated right inguinal hernia Discharge Exam Gastrointestinal (Abdomen) Inspection/Auscultation: + abdominal surgical incision (clean, dry); abdomen not distended Percussion/Palpation: abdomen soft Discharge Data Allergies Allergy/AdvReac Type Severity Reaction Status Date / Time brimonidine AdvReac Mild ITCHING Verified 07/28/18 20:32 Aromatic Oils Allergy Unknown DRY Uncoded 07/28/18 20:32 THROAT,CHOKING,NUMB LIPS Procedures Performed Operation Date: 08/25/18 22:00 Actual Procedures p Incarcerated Right Direct Hernia Repair(Right) - Andrea Gustafson MD Ordered Studies 08/25/18 20:02 CT abd pelvis wo con Stat Hospital Course (1) Incarcerated right inguinal hernia: 88 y/o female with a lump in right groin presented now with pain and inability to reduce the hernia. CT showed colon in the right inguinal hernia. She was taken to the OR that night for open right inguinal hernia repair and transferred to the surgical floor. She had some nausea in the morning and lack of appetite throughout the day. This improved by POD 2 and she was able to tolerate regular diet and oral analgesics. She was stable for discharge. Total Time Total Time Spent Total Time Spent (In Minutes): 15 Discharge Plan Discharge Items Patient Disposition: Home - Self-Care Reason For Visit: POST OP Discharge Diagnosis: incarcerated inguinal hernia Discharge Goals: Decrease discomfort Activity: Per 'Additional Instructions' section Lifting: No more than 10 pounds Bathing Comment: Ok to shower, do not bathe/soak the incision Non-emergency contact: Surgeon Call non-emergency contact if: you have any medication questions, your pain is not controlled, your temperature is above 101.5, your wound has increased redness and your wound has increased drainage Follow-up/Referrals: Andrea Gustafson MD [Surgeon] - (Call the office to schedule an appt in approx 1 week) Flores Castro MD [Primary Care Provider] - Diet: Regular Addtl Provider Instructions: Prescriptions: Continued atorvastatin 20 mg tablet 20 mg PO QAM RF: 0 meclizine 12.5 mg tablet 12.5 mg PO TID PRN (Reason: Dizziness) RF: 0 acetaminophen [Tylenol Extra Strength] 500 mg Tablet 1,000 mg PO DIRECTED PRN (Reason: Pain) RF: 0 cyanocobalamin (vitamin B-12) [Vitamin B-12] 500 mcg Tablet 500 mcg PO DAILY RF: 0 lisinopril 10 mg tablet 10 mg PO QAM RF: 0 docusate sodium 100 mg Capsule 100 mg PO DAILY RF: 0 loteprednol etabonate [Lotemax] 0.5 % drops,suspension 1 drp OPR DAILY RF: 0 calcium carbonate-vitamin D3 [Calcium 500 + D] 500 mg(1,250mg) -400 unit Tablet 1 tab PO DAILY RF: 0 aspirin 81 mg tablet,chewable 81 mg PO DAILY Qty: 30 RF: 12 Stand-Alone Forms: [facility] Discharge Orders: Discharge Order (Routine); Ordered 08/27/18 Ordered By: Moi Carrero Admission Data Admit Date/Time: 08/26/18 00:40 Attending Provider: Andrea Gustafson Admit Provider: Andrea Gustafson Primary Care Provider: Flores Castro Service: Surgical Services Other Interventions: Discharge Summary Assessment (RN) Last Done: 08/27/18 13:14 DC Date/Time DO NOT enter until pt leaves facility: 08/27/18 15:16
== END 2018-08-27 15:16 | disposition home or self-care (01) | DRG 355 ==
LOC: ED 18:45 → OR 21:47 → 3W 08-26 00:40